=== PATIENT | female | born 1980 | race Caucasian/White ===

== ENCOUNTER 2017-06-09 13:12 | Emergency (ER) | payer SELFPAY ==
[2017-06-09] MEDS ORDERED: cefTRIAXone\\ROCEPHIN 1 GM VIAL ONE (15:40)
[2017-06-09] MEDS ORDERED: Dexamethasone 4 mg/ml Vial ONE (15:40)
[2017-06-09] MEDS ORDERED: Lidocaine 1% PF 5 ML VIAL ONE (15:41)
== END 2017-06-09 16:21 | disposition home or self-care (01) ==
LOC: ERS 13:12
DX: J20.9 Acute bronchitis, unspecified (principal)
CPT/HCPCS: 96372; J0696; J1100; J2001

== ENCOUNTER 2017-08-10 10:10 | Emergency (ER) | payer SELFPAY | END 2017-08-10 11:19 | disposition home or self-care (01) | LOC: SCSER 10:10 | DX: J11.1 Influenza due to unidentified influenza virus with other respiratory manifestations (principal) | CPT/HCPCS: 81025; 99283 ==

== ENCOUNTER 2017-09-20 16:43 | Emergency (ER) | payer SELFPAY | END 2017-09-20 17:35 | disposition home or self-care (01) | LOC: SCSER 16:43 | DX: J01.90 Acute sinusitis, unspecified (principal) | CPT/HCPCS: 99283 ==

== ENCOUNTER 2019-01-02 12:37 | Outpatient (CLI) | payer BC ==
[2019-01-02 13:31] LABS: #Eosinphils 0.3 thou/uL (0.0-0.7); #Lymphocytes 2.7 thou/uL (1.20-3.40); #Monocytes 0.4 thou/uL (0.11-0.59); #Neutrophils 5.2 thou/uL (1.40-6.50); %Basophils 0.5 % (0.0-1.0); %Eosinophils 3.9 % (0.0-10.0); %Lymphocytes 31.4 % (21.0-51.0); %Monocytes 4.7 % (0.0-10.0); %Neutrophils 59.5 % (42.0-75.0); Hemoglobin 12.8 g/dL (12.0-16.0); Mean Corpuscular HGB CONC 33.8 g/dL (32.0-36.0); Mean Corpuscular Hemoglobin 31.6 pg (27.0-31.0); Mean Corpuscular Volume 93.5 fL (78.0-98.0); Mean Platelet Volume 9.2 fL (7.4-10.4); Platelet Count 245 thou/uL (130-400); RBC Distribution Width 11.4 % (11.5-14.5); Red Blood Cell (RBC) Count 4.07 mill/uL (4.20-5.40); White Blood Cell (WBC) Count 8.7 thou/uL (4.8-10.8)
[2019-01-02 13:34] LABS: BHCG - Serum Negative (NEGATIVE); Pregs Control Background? CLEAR/WHITE (CLR/WHITE); Pregs Control Bar Appear? YES (CONTROL BAR)
[2019-01-02 13:53] LABS: ALT (SGPT) 229 U/L (8-55); AST (SGOT) 58 U/L (5-34); Albumin 4.5 g/dL (3.5-5.0); Alkaline Phosphatase 131 U/L (40-150); Anion Gap 12 mmol/L (10-20); BUN (Urea Nitrogen) 20 mg/dL (7.0-18.7); Bilirubin, Direct 0.3 mg/dL (0.1-0.3); Bilirubin, Total 0.6 mg/dL (0.2-1.2); Calc. Creatinine Clearance 0 mL/min (70-130); Calcium 9.4 mg/dL (7.8-10.44); Carbon Dioxide 24 mmol/L (22-29); Chloride 107 mmol/L (98-107); Estimated GFR-MDRD 83; Globulin 3.1 g/dL (2.4-3.5); Glucose 89 mg/dL (70-105); Potassium 4.1 mmol/L (3.5-5.1); Protein, Total 7.6 g/dL (6.0-8.3); Sodium 139 mmol/L (136-145)
== END 2019-01-02 12:38 | disposition home or self-care (01) ==
LOC: LABBT 12:37
PROVIDERS: ATTEND Surgery
DX: Z01.812 Encounter for preprocedural laboratory examination (principal)
CPT/HCPCS: 80053; 80076; 84703; 85025

== ENCOUNTER 2019-01-12 07:16 | Day surgery (SDC) | payer BC ==
[2019-01-02 12:44] VITALS: BMI 36.0
[2019-01-12] MEDS ORDERED: Sodium Chloride 0.9% 100 ML ONE (07:57)
[2019-01-12] MEDS ORDERED: cefOXitin 2 GM VIAL ONE (07:57)
[2019-01-12] MEDS ORDERED: Bupivacaine/Epinephrine 0.25% 30 ML VIAL ONE (09:01)
[2019-01-12] MEDS ORDERED: Midazolam HCl 2 mg/2 ml Vial ONE (09:06)
[2019-01-12] MEDS ORDERED: Fentanyl 100 MCG/2 ML VIAL ONE ×2 (09:06→10:49)
[2019-01-12] MEDS ORDERED: Iothalamate Meglumine 60% 50 ML VIAL FS ONE (09:07)
--- NOTE | 2019-01-12 10:30 | RAD ---
Exam: INTRAOPERATIVE CHOLANGIOGRAM: EXPOSURE: 0.397 mGy. HISTORY: Intraoperative cholangiogram. Cholecystitis. FINDINGS: Two intraoperative fluoroscopic images demonstrate opacification of the intra and extrahepa tic biliary system. No dilatation. No filling defects. Contrast opacifies the duodenum. IMPRESSION: Intraoperative fluoroscopy as above. Transcribed Date/Time: 01/12/2019 10:46 AM
[2019-01-12] MEDS ORDERED: PROPOFOL 200 MG/20 ML VIAL ONE (12:52)
[2019-01-12] MEDS ORDERED: Ketorolac Tromethamine 30 MG/ML VIAL ONE (12:52)
[2019-01-12] MEDS ORDERED: Glycopyrrolate 0.2 MG/ML 5 ML SYRINGE ONE (12:52)
[2019-01-12] MEDS ORDERED: Lidocaine 1% PF 5 ML VIAL ONE (12:52)
[2019-01-12] MEDS ORDERED: Rocuronium Bromide 10 MG/ML (10ML VIAL) ONE (12:52)
[2019-01-12] MEDS ORDERED: Dexamethasone 20 MG/5 ML VIAL ONE (12:52)
--- NOTE | 2019-01-12 18:15 | OP ---
DATE OF PROCEDURE: 01/12/2019 PREOPERATIVE DIAGNOSES: Symptomatic cholelithiasis with elevated liver function tests. PROCEDURES PERFORMED: Laparoscopic cholecystectomy with intraoperative cholangiogram. INDICATIONS: A 38-year-old female, who has been having episodic right upper quadrant pain radiating to back associated with nausea. Ultrasound showed cholelithiasis. She had some elevated transaminases. FINDINGS: There were lot of adhesions to the gallbladder suggestive of previous inflammation. The cystic duct was small caliber. The cholangiogram showed no filling defects, free flow into the duodenum. DESCRIPTION OF PROCEDURE: After informed consent was obtained, the patient was taken to the operating room and given general endotracheal anesthesia, placed in the supine position. Abdomen was prepped and draped in usual fashion. Local anesthesia infiltrated subcutaneously and deep. A subumbilical incision was performed. Subcu divided sharply. The fascia was grasped with 2 stay sutures of 0 Vicryl placed in each side of midline. Midline incised. Digital palpation revealed no local adhesions. A blunt 12-mm trocar was inserted. Pneumoperitoneum was created to a pressure of 15 mmHg. A 0-degree laparoscope was inserted under direct vision. Three 5 mm ports were placed subcostally. The gallbladder was grasped and advanced superiorly. There were multiple adhesions to the gallbladder, these were taken down using blunt and sharp dissection. The cystic duct, cystic artery, and critical view were dissected out. The artery was triply ligated with hemoclips and divided. A clip was placed at the base of the gallbladder on the cystic duct. An incision was made in the cystic duct, and an Arrow cholangiocatheter was inserted. Intraoperative cholangiogram was performed utilizing fluoroscopy. This showed free flow into the duodenum, no filling defects, normal intrahepatic ducts. The cystic duct was triply ligated with hemoclips and divided. The gallbladder was removed from its fossa utilizing electrocautery, removed from the abdomen through the umbilical port in an endosac. Hemostasis was achieved. The abdomen was irrigated. Irrigation fluid was removed. The fascia was closed with interrupted 0 Vicryl suture, the skin was closed with interrupted 4-0 Rapide. Dermabond was applied. The patient tolerated the procedure well, transferred to Recovery in good condition. Sponge and needle count verified correct x2. Job ID: [id number]
== END 2019-01-12 11:56 | disposition home or self-care (01) ==
LOC: SDC 07:16
PROVIDERS: ATTEND Surgery
PROC: BF121ZZ Fluoroscopy of Gallbladder using Low Osmolar Contrast (ICD-10-PCS; principal; 2019-01-12)
PROC: 0FT44ZZ Resection of Gallbladder, Percutaneous Endoscopic Approach (ICD-10-PCS; principal; 2019-01-12)
DX: K80.10 Calculus of gallbladder with chronic cholecystitis without obstruction (principal); R94.5 Abnormal results of liver function studies; F41.9 Anxiety disorder, unspecified; Z87.891 Personal history of nicotine dependence
CPT/HCPCS: 47532; 88304; J0694; J1100; J1885; J2001; J2250; J2704; J3010; J3490; Q9961

== ENCOUNTER 2023-04-08 08:24 | Inpatient (IN) | payer OTHER ==
[2023-04-08] MEDS ORDERED: Morphine 4 MG/ML VIAL ONE (08:33)
[2023-04-08 08:57] LABS: #Eosinphils 0.1 thou/uL (0.0-0.7); #Monocytes 0.4 thou/uL (0.11-0.59); #Neutrophils 10.6 thou/uL (1.40-6.50); %Basophils 0.2 % (0.0-1.0); %Eosinophils 0.7 % (0.0-10.0); %Lymphocytes 12.2 % (21.0-51.0); %Monocytes 3.3 % (0.0-10.0); %Neutrophils 83.2 % (42.0-75.0); Hematocrit 36.4 % (36.0-47.0); Hemoglobin 12.3 g/dL (12.0-16.0); Mean Corpuscular HGB CONC 33.8 g/dL (32.0-36.0); Mean Corpuscular Hemoglobin 30.6 pg (27.0-31.0); Mean Corpuscular Volume 90.5 fl (78.0-98.0); Mean Platelet Volume 11.3 fL (7.4-10.4); Platelet Count 284 10x3/uL (130-400); RBC Distribution Width 12.9 % (11.5-14.5); Red Blood Cell (RBC) Count 4.02 mill/uL (4.20-5.40); White Blood Cell (WBC) Count 12.7 10x3/uL (4.8-10.8)
[2023-04-08 09:12] LABS: BHCG - Serum Negative (NEGATIVE); Pregs Control Background? CLEAR/WHITE (CLR/WHITE); Pregs Control Bar Appear? YES (CONTROL BAR)
[2023-04-08 09:16] LABS: ALT (SGPT) 17 U/L (8-55); AST (SGOT) 15 U/L (5-34); Albumin 4.2 g/dL (3.5-5.0); Alkaline Phosphatase 82 U/L (40-110); Anion Gap 15 mmol/L (10-20); BUN (Urea Nitrogen) 19 mg/dL (7.0-18.7); Bilirubin, Total 0.4 mg/dL (0.2-1.2); Calc. Creatinine Clearance 0 mL/min (70-130); Calcium 9.5 mg/dL (7.8-10.44); Carbon Dioxide 20 mmol/L (22-29); Chloride 105 mmol/L (98-107); Estimated GFR 83; Globulin 3.8 g/dL (2.4-3.5); Glucose 103 mg/dL (70-105); Lipase 9 U/L (8-78); Potassium 3.5 mmol/L (3.5-5.1); Sodium 136 mmol/L (136-145)
[2023-04-08] MEDS ORDERED: fentaNYL 50 mcg/mL 1 mL Vial ONE ×2 (09:51→12:52)
[2023-04-08] MEDS ORDERED: Ketamine 50 MG/ML (10ML VIAL) ONE (09:54)
[2023-04-08] MEDS ORDERED: PROPOFOL 20 ML ONE (10:17)
[2023-04-08] MEDS ORDERED: Ipratropium/Albuterol 3 ML NEB NEB PRN (12:54)
[2023-04-08] MEDS ORDERED: Ondansetron PF 4 MG/2 ML Vial IVP PRN (12:54)
[2023-04-08] MEDS: Sodium Chloride 0.9% 1,000 ML IV SCH ×3 (13:49→23:50)
[2023-04-08] MEDS: Morphine 2 MG/ML VIAL SLOW IVP PRN ×2 (15:56→21:07)
[2023-04-08 16:42] VITALS: BMI 33.6
[2023-04-08] MEDS: Acetaminophen 500 MG TAB PO SCH ×2 (17:31→23:47)
[2023-04-08] MEDS: traMADol HCl 50 MG TAB PO SCH ×2 (17:31→23:48)
[2023-04-08] MEDS: Senokot S 8.6-50 MG TAB PO SCH (21:07)
[2023-04-08] MEDS: Famotidine/PF 20 mg/2ml Vial SLOW IVP SCH (21:07)
[2023-04-09] MEDS: traMADol HCl 50 MG TAB PO SCH ×4 (05:13→23:30)
[2023-04-09] MEDS: Acetaminophen 500 MG TAB PO SCH ×4 (05:13→23:30)
[2023-04-09] MEDS: Morphine 2 MG/ML VIAL SLOW IVP PRN (06:45)
[2023-04-09] MEDS: Senokot S 8.6-50 MG TAB PO SCH ×2 (07:20→20:09)
[2023-04-09] MEDS: Polyethylene Glycol 3350 17 GM Packet PO SCH (07:20)
[2023-04-09] MEDS: Famotidine/PF 20 mg/2ml Vial SLOW IVP SCH ×2 (07:20→20:09)
[2023-04-09 07:25] LABS: #Eosinphils 0.2 thou/uL (0.0-0.7); #Monocytes 0.4 thou/uL (0.11-0.59); #Neutrophils 4.2 thou/uL (1.40-6.50); %Basophils 0.5 % (0.0-1.0); %Eosinophils 2.3 % (0.0-10.0); %Monocytes 5.8 % (0.0-10.0); %Neutrophils 64.1 % (42.0-75.0); Hematocrit 32.3 % (36.0-47.0); Hemoglobin 10.5 g/dL (12.0-16.0); Mean Corpuscular HGB CONC 32.5 g/dL (32.0-36.0); Mean Corpuscular Hemoglobin 30.3 pg (27.0-31.0); Mean Corpuscular Volume 93.1 fl (78.0-98.0); Mean Platelet Volume 11.2 fL (7.4-10.4); Platelet Count 227 10x3/uL (130-400); RBC Distribution Width 13.3 % (11.5-14.5); Red Blood Cell (RBC) Count 3.47 mill/uL (4.20-5.40); White Blood Cell (WBC) Count 6.5 10x3/uL (4.8-10.8)
[2023-04-09 07:37] LABS: INR-International Normal Ratio 1.1; PTT 30.7 sec (22.9-36.1); Prothrombin Time 14.9 sec (12.0-14.7)
[2023-04-09 07:43] LABS: Phosphorus 3.1 mg/dL (2.3-4.7)
[2023-04-09 07:53] LABS: Anion Gap 11 mmol/L (10-20); BUN (Urea Nitrogen) 14 mg/dL (7.0-18.7); Calc. Creatinine Clearance 156 mL/min (70-130); Carbon Dioxide 22 mmol/L (22-29); Chloride 107 mmol/L (98-107); Estimated GFR 106; Glucose 105 mg/dL (70-105); Magnesium 1.7 mg/dL (1.6-2.6); Potassium 3.7 mmol/L (3.5-5.1); Sodium 136 mmol/L (136-145)
[2023-04-09] MEDS ORDERED: Ibuprofen 200 MG TAB PO PRN (08:34)
[2023-04-09] MEDS ORDERED: Cyclobenzaprine 10 MG TAB PO PRN (08:34)
[2023-04-09] MEDS: traMADol HCl 50 MG TAB PO PRN (08:37)
[2023-04-09] MEDS: Sodium Chloride 0.9% 1,000 ML IV SCH (08:38)
[2023-04-09] MEDS: Pregabalin 50 MG CAP PO SCH ×2 (09:52→20:09)
[2023-04-09] MEDS ORDERED: Morphine 2 MG/ML VIAL SLOW IVP SCH (11:15)
[2023-04-10] MEDS: traMADol HCl 50 MG TAB PO PRN ×2 (02:37→15:59)
[2023-04-10] MEDS ORDERED: Morphine 2 MG/ML VIAL SLOW IVP SCH (03:15)
[2023-04-10] MEDS: traMADol HCl 50 MG TAB PO SCH ×3 (05:57→17:56)
[2023-04-10] MEDS: Acetaminophen 500 MG TAB PO SCH ×3 (05:57→17:56)
[2023-04-10] MEDS: Senokot S 8.6-50 MG TAB PO SCH ×2 (08:50→21:47)
[2023-04-10] MEDS: Famotidine/PF 20 mg/2ml Vial SLOW IVP SCH ×2 (08:52→21:47)
[2023-04-10] MEDS: Polyethylene Glycol 3350 17 GM Packet PO SCH (08:53)
[2023-04-10] MEDS: Pregabalin 50 MG CAP PO SCH ×2 (08:53→21:47)
[2023-04-11] MEDS: Acetaminophen 500 MG TAB PO SCH ×4 (00:29→16:51)
[2023-04-11] MEDS: traMADol HCl 50 MG TAB PO SCH ×4 (00:30→16:51)
[2023-04-11] MEDS: Senokot S 8.6-50 MG TAB PO SCH (09:11)
[2023-04-11] MEDS: Famotidine/PF 20 mg/2ml Vial SLOW IVP SCH (09:11)
[2023-04-11] MEDS: Pregabalin 50 MG CAP PO SCH (09:12)
[2023-04-11] MEDS: Polyethylene Glycol 3350 17 GM Packet PO SCH (09:12)
[2023-04-11 18:22] VITALS: BP 134/90; TEMP 97.8
== END 2023-04-11 18:34 | disposition home or self-care (01) | DRG 563 ==
LOC: ERS 08:24 → ERHOLD 13:25 → SJJU 14:36
PROVIDERS: ADMIT Surgery; ATTEND Surgery
PROC: 2W3RX1Z Immobilization of Left Lower Leg using Splint (ICD-10-PCS; principal; 2023-04-08)
PROC: 0QSKXZZ Reposition Left Fibula, External Approach (ICD-10-PCS; 2023-04-08)
PROC: 0QSHXZZ Reposition Left Tibia, External Approach (ICD-10-PCS; 2023-04-08)
DX: S82.852A Displaced trimalleolar fracture of left lower leg, initial encounter for closed fracture (principal); D62 Acute posthemorrhagic anemia; S83.512A Sprain of anterior cruciate ligament of left knee, initial encounter; S80.02XA Contusion of left knee, initial encounter; S61.402A Unspecified open wound of left hand, initial encounter; G43.909 Migraine, unspecified, not intractable, without status migrainosus; V29.498A Other motorcycle driver injured in collision with other motor vehicles in traffic accident, initial encounter; E83.42 Hypomagnesemia; E87.6 Hypokalemia; Z98.891 History of uterine scar from previous surgery; Z90.49 Acquired absence of other specified parts of digestive tract
CPT/HCPCS: 36415; 71045; 80048; 80053; 83690; 83735; 84100; 84703; 85025; 85610; 85730; 97139; G0390; J1650; J2270; J2272; J2704; J3010; J7050; S0028

== ENCOUNTER 2023-04-15 02:55 | Day surgery (SDC) | payer OTHER, SELFPAY ==
[2023-04-15] MEDS ORDERED: Bupivacaine PF 0.5% 30 ML VIAL ONE (10:26)
[2023-04-15] MEDS ORDERED: Midazolam HCl 2 mg/2 ml Vial ONE ×3 (10:26→13:29)
[2023-04-15] MEDS ORDERED: Dexmedetomidine 200 MCG/2 ML VIAL ONE (10:27)
[2023-04-15] MEDS ORDERED: CEFAZOLIN 2 GM in Sodium Chloride 0.9% 100 ML IVPB SCH (10:30)
[2023-04-15] MEDS ORDERED: EPINEPHrine 1 MG/ML AMP ONE (10:34)
[2023-04-15] MEDS ORDERED: Sodium Chloride 0.9% 100 ML ONE (11:00)
[2023-04-15] MEDS ORDERED: CEFAZOLIN 2 GM VIAL ONE (11:00)
[2023-04-15] MEDS ORDERED: Lidocaine 1% PF 5 ML VIAL ONE (11:19)
[2023-04-15] MEDS ORDERED: PROPOFOL 200 MG/20 ML VIAL ONE (11:19)
[2023-04-15] MEDS ORDERED: Ondansetron PF 4 MG/2 ML Vial ONE (11:19)
[2023-04-15] MEDS ORDERED: fentaNYL 50 mcg/mL 1 mL Vial ONE ×5 (11:25→13:27)
[2023-04-15] MEDS ORDERED: HYDROmorphone 0.5 MG/0.5 ML SYRINGE ONE (13:16)
[2023-04-15] MEDS ORDERED: Ropivacaine 0.5% HCl/PF (150 MG/30 ML VIAL) ONE (13:22)
[2023-04-15] MEDS ORDERED: Ropivacaine 0.2% HCl/PF 20 ML ONE (13:22)
[2023-04-15] MEDS ORDERED: Ropivacaine 0.2% 550 ML 550 ML NERVE BLCK SCH (14:15)
[2023-04-15] MEDS ORDERED: Ondansetron PF 4 MG/2 ML Vial IVP PRN (14:15)
[2023-04-15] MEDS ORDERED: Promethazine HCl 25 MG/ML VIAL IM PRN (14:15)
[2023-04-15] MEDS ORDERED: Zolpidem Tartrate 5 MG TAB PO PRN (14:15)
[2023-04-15] MEDS ORDERED: HYDROcodone/Acetaminophen 5/325 mg Tablet ONE (17:51)
== END 2023-04-15 18:30 | disposition home or self-care (01) ==
LOC: ERS 02:55 → SDC 08:06
PROVIDERS: ATTEND Orthopaedic Surgery
PROC: 0QSK04Z Reposition Left Fibula with Internal Fixation Device, Open Approach (ICD-10-PCS; principal; 2023-04-15)
PROC: 0QSH0ZZ Reposition Left Tibia, Open Approach (ICD-10-PCS; principal; 2023-04-15)
DX: S82.851A Displaced trimalleolar fracture of right lower leg, initial encounter for closed fracture (principal); G43.909 Migraine, unspecified, not intractable, without status migrainosus; V89.2XXA Person injured in unspecified motor-vehicle accident, traffic, initial encounter; Z90.49 Acquired absence of other specified parts of digestive tract; Z87.59 Personal history of other complications of pregnancy, childbirth and the puerperium; Z79.899 Other long term (current) drug therapy
CPT/HCPCS: A4306; C1713; J0171; J1170; J2250; J2405; J2704; J2795; J3010; J3490; S0020